=== PATIENT | male | born 1960 ===

== ENCOUNTER 2021-06-26 04:47 | Inpatient (IN) ==
[2021-06-26 07:13] LABS: Basophils # 0.1 10*3/uL (0.0-0.2); Basophils % 0.9 % (0.0-0.8); Eosinophils # 0.3 10*3/uL (0.0-0.87); Eosinophils % 5.9 % (0.00-10.9); Hematocrit 26.6 VOL% (42.0-52.0); Hemoglobin 8.8 GM/DL (14.0-18.0); Immature Granulocytes % 0.2 %; Immature Granulocytes Absolute 0.01 #; Lymphocytes # 1.7 10*3/uL (1.4-4.0); Lymphocytes % 31.8 % (21.2-54.2); Mean Corpuscular HGB Conc 33.1 GM/DL (32-36); Mean Corpuscular Volume 75.8 FL (87-102); Mean Platelet Volume 11.6 FL (9.6-12.0); Neutrophils % 43.2 % (38.7-73.9); Platelet Count 97 T/CUMM (130-400); Red Blood Count 3.51 MC/CUMM (3.8-5.5); Red Cell Distribution Width 18.6 % (9.3-17.3); White Blood Count 5.4 T/CUMM (4-12)
[2021-06-26 07:34] LABS: Albumin 1.9 G/DL (3.4-5.0); Bilirubin,Total 5.5 MG/DL (0.20-1.00); Osmolality,Calculated 270.8 MOS/KG (273-304); Potassium 3.7 MMOL/L (3.5-5.1); Total Protein 6.5 G/DL (6.4-8.2)
[2021-06-26 08:01] LABS: Anisocytosis 2+; Eosinophils 8 % (0-10); Hypochromia 1+; Lymphocytes 29 % (20-55); Macrocytosis 1+; Platelet Estimate Decreased; Segmented Neutrophils 53 % (50-85); Smudge Cells 1+; Total Cells Counted 100
[2021-06-26 08:02] LABS: Target Cells 1+
[2021-06-26 08:22] LABS: Barbiturates Screen,Urine Negative (Negative); Benzodiazepines Screen,Urine Negative (Negative); Cannabinoid Screen,Urine Negative (Negative); Opiate Screen,Urine Negative (Negative); Phencyclidine Screen,Urine Negative (Negative)
[2021-06-26] MEDS ORDERED: FUROSEMIDE 40 MG/4 ML VIAL IV STA (10:19)
[2021-06-26] MEDS ORDERED: GLUCAGON 1 MG VIAL IM PRN (10:38)
[2021-06-26] MEDS ORDERED: DEXTROSE 50% 25 GM/50 ML SYRINGE IV PRN (10:38)
[2021-06-26] MEDS ORDERED: ONDANSETRON 4 MG/2 ML VIAL IV PRN (10:43)
[2021-06-26] MEDS ORDERED: HYDROmorphone 2 MG/1 ML VIAL ONE (10:49)
[2021-06-26] MEDS ORDERED: HYDROmorphone 2 MG/1 ML VIAL IV ONE (10:55)
[2021-06-26 11:12] LABS: INR 1.7; PT Patient Result 17.9 SECS (10.5-12.0); Partial Thromboplastin Time 32.5 SECS (23.8-32.1)
[2021-06-26] MEDS: PANTOPRAZOLE 40 MG TABLET PO SCH (11:40)
[2021-06-26] MEDS: SPIRONOLACTONE 25 MG TABLET PO SCH ×2 (11:40→20:17)
[2021-06-26] MEDS ORDERED: PHYTONADIONE 10 MG/1 ML AMP SUBCUT ONE (11:57)
[2021-06-26 12:02] LABS: Hepatitis B Surface Ag Quant < 0.10 Index; Hepatitis B Surface Ag Result Non-Reactive (NonReactive); Hepatitis C Virus Ab Quant 0.11 Index; Hepatitis C Virus Ab Result Non-Reactive (NonReactive)
[2021-06-27] MEDS: HYDROmorphone 2 MG/1 ML VIAL IV PRN (03:58)
[2021-06-27 06:00] LABS: Basophils % 0.4 % (0.0-0.8); Eosinophils # 0.3 10*3/uL (0.0-0.87); Eosinophils % 4.2 % (0.00-10.9); Hematocrit 22.9 VOL% (42.0-52.0); Hemoglobin 7.7 GM/DL (14.0-18.0); Immature Granulocytes % 0.4 %; Immature Granulocytes Absolute 0.03 #; Lymphocytes # 1.4 10*3/uL (1.4-4.0); Lymphocytes % 19.8 % (21.2-54.2); Mean Corpuscular HGB Conc 33.6 GM/DL (32-36); Mean Corpuscular Volume 75.1 FL (87-102); Monocytes % 15.2 % (1.7-12.7); Platelet Count 76 T/CUMM (130-400); Red Blood Count 3.05 MC/CUMM (3.8-5.5); Red Cell Distribution Width 18.2 % (9.3-17.3); White Blood Count 7.2 T/CUMM (4-12)
[2021-06-27 06:24] LABS: Eosinophils 2 % (0-10); Hypochromia 1+; Lymphocytes 20 % (20-55); Microcytosis 1+; Platelet Estimate Decreased; Segmented Neutrophils 71 % (50-85); Total Cells Counted 100
[2021-06-27 06:30] LABS: Albumin 1.6 G/DL (3.4-5.0); Bilirubin,Total 4.6 MG/DL (0.20-1.00); Calcium 8.1 MG/DL (8.5-10.1); Osmolality,Calculated 263.4 MOS/KG (273-304); Potassium 3.5 MMOL/L (3.5-5.1); Total Protein 5.6 G/DL (6.4-8.2)
[2021-06-27 07:56] LABS: % Iron Saturation 25.5 % (18-50)
[2021-06-27] MEDS ORDERED: SODIUM CHLORIDE 0.9% 1,000 ML IV PRN (08:09)
[2021-06-27 08:29] LABS: INR 1.6; PT Patient Result 17.7 SECS (10.5-12.0)
[2021-06-27] MEDS: POTASSIUM CHLORIDE 20 MEQ TABLET PO SCH (09:07)
[2021-06-27] MEDS: SPIRONOLACTONE 50 MG TABLET PO SCH ×2 (09:08→20:16)
[2021-06-27] MEDS: PANTOPRAZOLE 40 MG TABLET PO SCH (09:08)
[2021-06-27] MEDS: FUROSEMIDE 40 MG TABLET PO SCH (09:15)
[2021-06-27] MEDS ORDERED: TISSUE ADHESIVE 1 EACH APPLICATOR TOP ONE (10:06)
[2021-06-27 14:20] LABS: Neutrophils,Peritoneal Fluid 30 %; RBC,Peritoneal Fluid 287 T/CUMM
[2021-06-28] MEDS: HYDROmorphone 2 MG/1 ML VIAL IV PRN ×2 (04:23→20:28)
[2021-06-28 06:45] LABS: Basophils % 0.5 % (0.0-0.8); Eosinophils # 0.2 10*3/uL (0.0-0.87); Eosinophils % 2.9 % (0.00-10.9); Immature Granulocytes % 0.5 %; Immature Granulocytes Absolute 0.04 #; Lymphocytes # 1.6 10*3/uL (1.4-4.0); Lymphocytes % 20.1 % (21.2-54.2); Mean Corpuscular HGB Conc 34.8 GM/DL (32-36); Mean Corpuscular Volume 75.5 FL (87-102); Monocytes % 17.9 % (1.7-12.7); Neutrophils % 58.1 % (38.7-73.9); Platelet Count 76 T/CUMM (130-400); Red Cell Distribution Width 17.6 % (9.3-17.3)
[2021-06-28 06:51] LABS: Hemoglobin 10.1 GM/DL (14.0-18.0); INR 1.5; PT Patient Result 16.6 SECS (10.5-12.0); Red Blood Count 3.84 MC/CUMM (3.8-5.5)
[2021-06-28 07:09] LABS: Albumin 1.4 G/DL (3.4-5.0); Bilirubin,Total 7.6 MG/DL (0.20-1.00); Calcium 7.5 MG/DL (8.5-10.1); Osmolality,Calculated 258.8 MOS/KG (273-304); Potassium 3.6 MMOL/L (3.5-5.1); Total Protein 5.3 G/DL (6.4-8.2)
[2021-06-28 07:11] LABS: Eosinophils 4 % (0-10); Hypochromia 1+; Lymphocytes 11 % (20-55); Microcytosis 1+; Platelet Estimate Decreased; Segmented Neutrophils 70 % (50-85); Total Cells Counted 100
[2021-06-28] MEDS: LACTATED RINGERS 1,000 ML IV SCH (07:58)
[2021-06-28] MEDS ORDERED: propofoL 200 MG/20 ML VIAL IV ONE (09:20)
[2021-06-28] MEDS ORDERED: LIDOCAINE 2% 5 ML VIAL ONE (09:20)
[2021-06-28] MEDS ORDERED: PHENYLEPHRINE 1 MG/10 ML SYRINGE IV ONE (09:20)
[2021-06-28] MEDS: SPIRONOLACTONE 50 MG TABLET PO SCH ×2 (11:09→20:26)
[2021-06-28] MEDS ORDERED: SODIUM BICARBONATE 650 MG TABLET PO ONE (11:10)
[2021-06-28] MEDS: POTASSIUM CHLORIDE 20 MEQ TABLET PO SCH (12:11)
[2021-06-28] MEDS: PANTOPRAZOLE 40 MG TABLET PO SCH (12:11)
[2021-06-28] MEDS: FUROSEMIDE 40 MG TABLET PO SCH (12:12)
[2021-06-28] MEDS ORDERED: SODIUM BICARBONATE 650 MG TABLET PO SCH (21:00)
[2021-06-29 05:32] LABS: Basophils % 0.3 % (0.0-0.8); Eosinophils # 0.2 10*3/uL (0.0-0.87); Eosinophils % 2.5 % (0.00-10.9); Hematocrit 28.5 VOL% (42.0-52.0); Hemoglobin 9.9 GM/DL (14.0-18.0); Immature Granulocytes % 0.4 %; Immature Granulocytes Absolute 0.04 #; Lymphocytes # 1.7 10*3/uL (1.4-4.0); Lymphocytes % 18.4 % (21.2-54.2); Mean Corpuscular HGB Conc 34.7 GM/DL (32-36); Mean Corpuscular Volume 75.2 FL (87-102); Monocytes % 15.9 % (1.7-12.7); Neutrophils % 62.5 % (38.7-73.9); Platelet Count 79 T/CUMM (130-400); Red Blood Count 3.79 MC/CUMM (3.8-5.5); Red Cell Distribution Width 18.1 % (9.3-17.3); White Blood Count 9.2 T/CUMM (4-12)
[2021-06-29 05:40] LABS: Hypochromia 1+; Lymphocytes 21 % (20-55); Microcytosis 1+; Platelet Estimate Decreased; Segmented Neutrophils 71 % (50-85); Total Cells Counted 100
[2021-06-29 05:48] LABS: Albumin 1.5 G/DL (3.4-5.0); Calcium 7.4 MG/DL (8.5-10.1); Osmolality,Calculated 255.1 MOS/KG (273-304); Potassium 3.7 MMOL/L (3.5-5.1); Total Protein 5.4 G/DL (6.4-8.2)
[2021-06-29] MEDS: LACTATED RINGERS 1,000 ML IV SCH (08:11)
[2021-06-29] MEDS ORDERED: ALBUMIN 25% 50 GM/200 ML VIAL IV ONE (08:14)
[2021-06-29] MEDS: SPIRONOLACTONE 50 MG TABLET PO SCH ×2 (09:09→20:39)
[2021-06-29] MEDS: POTASSIUM CHLORIDE 20 MEQ TABLET PO SCH (09:09)
[2021-06-29] MEDS: PANTOPRAZOLE 40 MG TABLET PO SCH ×2 (09:09→20:39)
[2021-06-29] MEDS: FUROSEMIDE 40 MG TABLET PO SCH (09:09)
[2021-06-30 05:32] LABS: Basophils % 0.5 % (0.0-0.8); Eosinophils # 0.2 10*3/uL (0.0-0.87); Hemoglobin 10.1 GM/DL (14.0-18.0); Immature Granulocytes % 0.3 %; Immature Granulocytes Absolute 0.02 #; Lymphocytes % 26.1 % (21.2-54.2); Mean Corpuscular HGB Conc 34.8 GM/DL (32-36); Mean Corpuscular Volume 74.7 FL (87-102); Monocytes % 19.5 % (1.7-12.7); Neutrophils % 51.6 % (38.7-73.9); Platelet Count 77 T/CUMM (130-400); Red Blood Count 3.88 MC/CUMM (3.8-5.5); White Blood Count 7.5 T/CUMM (4-12)
[2021-06-30 05:44] LABS: Calcium 7.4 MG/DL (8.5-10.1); Osmolality,Calculated 262.4 MOS/KG (273-304); Potassium 4.3 MMOL/L (3.5-5.1)
[2021-06-30 05:56] LABS: Atypical Lymphocytes Few; Eosinophils 2 % (0-10); Hypochromia 2+; Lymphocytes 19 % (20-55); Segmented Neutrophils 67 % (50-85); Smudge Cells Few; Total Cells Counted 100
[2021-06-30 05:57] LABS: Acanthocytes Few; Microcytosis 1+; Ovalocytes Slight; Platelet Estimate Decreased; Target Cells 1+
[2021-06-30] MEDS ORDERED: MAGNESIUM SULF RIDER 2 GM/50 ML PREMIX IV ONE (08:00)
[2021-06-30] MEDS: PANTOPRAZOLE 40 MG TABLET PO SCH ×2 (09:36→20:50)
[2021-06-30] MEDS: SPIRONOLACTONE 50 MG TABLET PO SCH ×2 (09:36→20:50)
[2021-06-30] MEDS: MULTIVITAMIN (CENTRUM) TABLET PO SCH (09:36)
[2021-06-30] MEDS: FOLIC ACID 1 MG TABLET PO SCH (09:36)
[2021-06-30] MEDS: THIAMINE 100 MG TABLET PO SCH (09:36)
[2021-06-30] MEDS: POTASSIUM CHLORIDE 20 MEQ TABLET PO SCH (09:36)
[2021-06-30] MEDS: FUROSEMIDE 40 MG TABLET PO SCH (09:36)
[2021-07-01] MEDS: THIAMINE 100 MG TABLET PO SCH (09:27)
[2021-07-01] MEDS: FOLIC ACID 1 MG TABLET PO SCH (09:27)
[2021-07-01] MEDS: FUROSEMIDE 40 MG TABLET PO SCH (09:27)
[2021-07-01] MEDS: PANTOPRAZOLE 40 MG TABLET PO SCH ×2 (09:27→20:37)
[2021-07-01] MEDS: POTASSIUM CHLORIDE 20 MEQ TABLET PO SCH (09:27)
[2021-07-01] MEDS: MULTIVITAMIN (CENTRUM) TABLET PO SCH (09:27)
[2021-07-01] MEDS: SPIRONOLACTONE 50 MG TABLET PO SCH ×2 (09:27→20:37)
[2021-07-01 20:37] LABS: Calcium 7.6 MG/DL (8.5-10.1); Osmolality,Calculated 264.5 MOS/KG (273-304); Potassium 4.3 MMOL/L (3.5-5.1)
[2021-07-01] MEDS ORDERED: SODIUM CHLORIDE 0.9% 1,000 ML IV PRN (23:58)
[2021-07-02 00:44] VITALS: BP 80/34
[2021-07-02] MEDS ORDERED: SODIUM CHLORIDE 0.9% 500 ML IV ONE (00:46)
[2021-07-02] MEDS ORDERED: PANTOPRAZOLE INJ 80 MG in SODIUM CHLORIDE 0.9% 100 ML IV ONE (01:00)
[2021-07-02] MEDS ORDERED: EPINEPHrine 1 MG/10 ML SYRINGE IV ONE (01:41)
[2021-07-02] MEDS ORDERED: SODIUM BICARBONATE 50 MEQ/50 ML SYRINGE IV ONE (01:41)
[2021-07-02] MEDS ORDERED: PANTOPRAZOLE INJ 200 MG in SODIUM CHLORIDE 0.9% 250 ML IV SCH (02:00)
== END 2021-07-02 01:42 | disposition expired | DRG 280 ==
LOC: N.ED 04:47 → N.EDINP 10:38 → SUATTDRO 10:38 → N.3E 12:46
PROVIDERS: ADMIT Internal Medicine; ATTEND Emergency Medicine